=== PATIENT | male | born 1975 | race Caucasian/White ===

== ENCOUNTER 2020-06-27 21:09 | Inpatient (IN) | payer OTHER ==
[~2020-06-27] VITALS: Ht 182.9 cm; Wt 120.2 kg
[~2020-06-27 21:09] MED LIST: ALDACTONE 25MG25 MG PO; FERRO-TIME325 MG PO; KLOR-CON 1010 MEQ PO; LACTULOSE10 GM/15 M PO; PROTONIX 40 MG40 M1 PO; PROZAC40 MG PO
[2020-06-27 22:10] LABS: HEMOGLOBIN 13.9 gm/dl (14.0-17.5); RED BLOOD COUNT 4.33 M/UL (4.20-5.50)
[2020-06-27 22:34] LABS: BUN/CREATININE RATIO 11 (0-10)
[2020-06-28] MEDS ORDERED: SUBOXONE 8 MG-1 EACH SL (12:49)
[2020-06-29 03:34] LABS: BUN/CREATININE RATIO 15 (0-10)
[2020-06-29 06:19] LABS: HEMOGLOBIN 12.7 gm/dl (14.0-17.5); RED BLOOD COUNT 3.91 M/UL (4.20-5.50)
[2020-06-29 06:37] LABS: WHITE BLOOD COUNT 3.8 K/UL (4.5-11.0)
[2020-06-30 05:01] LABS: HEMOGLOBIN 12.8 gm/dl (14.0-17.5); RED BLOOD COUNT 3.9 M/UL (4.20-5.50); WHITE BLOOD COUNT 3.4 K/UL (4.5-11.0)
--- NOTE | 2020-06-30 05:09 | NUR ---
0510- PLT COUNT OF 38 RECIEVED FROM LAB, NO CHANGE FROM PREVIOUS DAY.
[2020-06-30 05:37] LABS: BUN/CREATININE RATIO 17 (0-10)
[2020-07-01] MEDS ORDERED: PROZAC40 MG PO (13:14)
[2020-07-01] MEDS ORDERED: ALDACTONE 25MG25 MG PO (13:14)
[2020-07-01] MEDS ORDERED: PROTONIX 40 MG40 M1 PO (13:14)
[2020-07-01] MEDS ORDERED: LACTULOSE10 GM/15 M PO (13:14)
[2020-07-01] MEDS ORDERED: XIFAXAN 550 MG550 MG GT (13:19)
[2020-07-01] MEDS ORDERED: XIFAXAN 550 MG550 MG PO (13:21)
[2020-08-04] MEDS ORDERED: LACTULOSE10 GM/15 M PO (13:39)
== END 2020-07-01 14:52 | DRG 391 ==
LOC: ER1 21:09 → CDU 06-28 01:18 → M/S 06-28 16:50
PROVIDERS: Internal Medicine; Physician Assistant; ADMIT Internal Medicine
DX: K59.00 Constipation, unspecified (principal); K72.00 Acute and subacute hepatic failure without coma; E87.2 Acidosis; Z20.822 Contact with and (suspected) exposure to COVID-19; K75.81 Nonalcoholic steatohepatitis (NASH); D72.829 Elevated white blood cell count, unspecified; F17.200 Nicotine dependence, unspecified, uncomplicated; D69.59 Other secondary thrombocytopenia; B18.2 Chronic viral hepatitis C; Z79.899 Other long term (current) drug therapy
CPT/HCPCS: 36415; 71045; 80053; 82140; 83605; 85025; 85027; 85610; 87040; 87086; 99285; Q9967; U0002

== ENCOUNTER 2020-08-02 13:46 | Inpatient (IN) | payer OTHER ==
[~2020-08-02] VITALS: Ht 182.9 cm; Wt 117.9 kg
[~2020-08-02 13:46] MED LIST changes: +SUBOXONE 8 MG-1 EACH SL; +XIFAXAN 550 MG550 MG GT; +XIFAXAN 550 MG550 MG PO
[2020-08-02 15:34] LABS: HEMOGLOBIN 13.1 gm/dl (14.0-17.5); RED BLOOD COUNT 3.93 M/UL (4.20-5.50)
[2020-08-02 15:44] LABS: WHITE BLOOD COUNT 3.5 K/UL (4.5-11.0)
[2020-08-02 15:54] LABS: BUN/CREATININE RATIO 11 (0-10)
--- NOTE | 2020-08-02 18:15 | NUR ---
PT RECEIVED FROM ER, PT NONVERBAL AT PRESENT, DOESNT RESPOND TO QUESTIONS, GAURDS UNAWARE OF PTS MEDICAL HISTORY OR MEDICINE.,
[2020-08-03 07:13] LABS: HEMOGLOBIN 13.8 gm/dl (14.0-17.5); RED BLOOD COUNT 4.31 M/UL (4.20-5.50)
[2020-08-03 07:16] LABS: WHITE BLOOD COUNT 5.7 K/UL (4.5-11.0)
[2020-08-03 07:36] LABS: BUN/CREATININE RATIO 12 (0-10)
[2020-08-04 03:38] LABS: HEMOGLOBIN 11.7 gm/dl (14.0-17.5); RED BLOOD COUNT 3.48 M/UL (4.20-5.50); WHITE BLOOD COUNT 3.1 K/UL (4.5-11.0)
[2020-08-04 04:10] LABS: BUN/CREATININE RATIO 16 (0-10)
[2020-08-04] MEDS ORDERED: LACTULOSE10 GM/15 M PO (13:39)
== END 2020-08-04 15:26 | DRG 442 ==
LOC: ER1 13:46 → MED SURG 4 16:35 → CDU 16:35 → MED SURG 4 17:44
PROVIDERS: Family Medicine; ADMIT Internal Medicine
DX: K72.00 Acute and subacute hepatic failure without coma (principal); E87.0 Hyperosmolality and hypernatremia; F11.20 Opioid dependence, uncomplicated; D61.818 Other pancytopenia; K75.81 Nonalcoholic steatohepatitis (NASH); D69.6 Thrombocytopenia, unspecified; F17.210 Nicotine dependence, cigarettes, uncomplicated; B19.20 Unspecified viral hepatitis C without hepatic coma; E86.0 Dehydration; Z20.822 Contact with and (suspected) exposure to COVID-19
CPT/HCPCS: 36415; 71045; 80053; 82140; 83605; 83690; 83735; 84439; 84443; 85025; 85610; 86140; 99284; J0696; J2405; U0002

== ENCOUNTER 2020-08-15 15:17 | Inpatient (IN) | payer OTHER ==
[~2020-08-15] VITALS: Ht 182.9 cm; Wt 117.9 kg
[2020-08-15 17:54] LABS: HEMOGLOBIN 12.7 gm/dl (14.0-17.5); RED BLOOD COUNT 3.83 M/UL (4.20-5.50); WHITE BLOOD COUNT 4.2 K/UL (4.5-11.0)
[2020-08-15 18:14] LABS: BUN/CREATININE RATIO 10 (0-10)
[2020-08-16 04:17] LABS: HEMOGLOBIN 11.8 gm/dl (14.0-17.5); RED BLOOD COUNT 3.53 M/UL (4.20-5.50); WHITE BLOOD COUNT 3.6 K/UL (4.5-11.0)
[2020-08-16 04:46] LABS: BUN/CREATININE RATIO 11 (0-10)
[2020-08-17 03:42] LABS: HEMOGLOBIN 12.2 gm/dl (14.0-17.5); RED BLOOD COUNT 3.66 M/UL (4.20-5.50)
[2020-08-17 04:06] LABS: BUN/CREATININE RATIO 11 (0-10)
[2020-08-19 03:28] LABS: BUN/CREATININE RATIO 17 (0-10)
[2020-08-21 07:00] LABS: HEMOGLOBIN 11.4 gm/dl (14.0-17.5)
[2020-08-21 07:05] LABS: RED BLOOD COUNT 3.39 M/UL (4.20-5.50); WHITE BLOOD COUNT 2.3 K/UL (4.5-11.0)
[2020-08-21 07:28] LABS: BUN/CREATININE RATIO 15 (0-10)
[2020-08-22 04:53] LABS: HEMOGLOBIN 11.9 gm/dl (14.0-17.5); RED BLOOD COUNT 3.59 M/UL (4.20-5.50); WHITE BLOOD COUNT 2.2 K/UL (4.5-11.0)
[2020-08-22 05:21] LABS: BUN/CREATININE RATIO 15 (0-10)
--- NOTE | 2020-08-22 15:03 | NUR ---
CONTACTED AT THIS TIME ABOUT PATIENT CRITICAL PLATELET COUNT. NO NEW ORDERS GIVEN.
[2020-08-23 06:09] LABS: HEMOGLOBIN 11.8 gm/dl (14.0-17.5); RED BLOOD COUNT 3.5 M/UL (4.20-5.50)
[2020-08-23 06:11] LABS: WHITE BLOOD COUNT 2.8 K/UL (4.5-11.0)
[2020-08-23 06:27] LABS: BUN/CREATININE RATIO 15 (0-10)
[2020-08-23] MEDS ORDERED: CHRONULAC20 GM/30 M PO (09:25)
[2020-08-23] MEDS ORDERED: METHOCARBAMOL500 MG PO (09:25)
[2020-08-23] MEDS ORDERED: FLORANEX GRANU1 EACH PO (09:25)
[2020-08-23] MEDS ORDERED: XIFAXAN 550 MG550 MG PO (09:25)
[2020-08-23] MEDS ORDERED: ALDACTONE 25MG25 MG PO (09:46)
[2020-08-23] MEDS ORDERED: PHOS-NAK PACKET1 EA PO (10:38)
== END 2020-08-23 13:03 | DRG 442 ==
LOC: ER1 15:17 → MED SURG 4 18:40 → CDU 18:40 → MED SURG 4 08-16 14:35
PROVIDERS: Emergency Medicine; Internal Medicine; Physician Assistant; ADMIT Internal Medicine
DX: K72.00 Acute and subacute hepatic failure without coma (principal); K76.6 Portal hypertension; I85.10 Secondary esophageal varices without bleeding; D61.818 Other pancytopenia; E87.0 Hyperosmolality and hypernatremia; Z20.822 Contact with and (suspected) exposure to COVID-19; K74.60 Unspecified cirrhosis of liver; D69.6 Thrombocytopenia, unspecified; F41.9 Anxiety disorder, unspecified; F32.9 Major depressive disorder, single episode, unspecified; J01.90 Acute sinusitis, unspecified; E66.9 Obesity, unspecified; I95.9 Hypotension, unspecified; E87.6 Hypokalemia; R19.7 Diarrhea, unspecified; E86.0 Dehydration; K75.81 Nonalcoholic steatohepatitis (NASH); Z86.19 Personal history of other infectious and parasitic diseases; Z79.899 Other long term (current) drug therapy; Z68.35 Body mass index [BMI] 35.0-35.9, adult
CPT/HCPCS: 36415; 70450; 71045; 71046; 76705; 80048; 80053; 80307; 81001; 82140; 82550; 82553; 83690; 83735; 83874; 84100; 84484; 85025; 85027; 85049; 85610; 85730; 87040; 87086; 93005; 96374; 99285; G0378; G0480; J2270; J7030; Q9967; U0002

== ENCOUNTER 2020-08-24 21:20 | Emergency (ER) | payer OTHER ==
[~2020-08-24 21:20] MED LIST changes: +CHRONULAC20 GM/30 M PO; +FLORANEX GRANU1 EACH PO; +METHOCARBAMOL500 MG PO; +PHOS-NAK PACKET1 EA PO
[2020-08-24 22:41] LABS: HEMOGLOBIN 13.9 gm/dl (14.0-17.5); RED BLOOD COUNT 4.12 M/UL (4.20-5.50); WHITE BLOOD COUNT 5.2 K/UL (4.5-11.0)
[2020-08-24 23:02] LABS: BUN/CREATININE RATIO 10 (0-10)
== END 2020-08-25 02:27 | disposition home or self-care (01) ==
LOC: ER1 21:20
PROVIDERS: Physician Assistant
DX: R25.1 Tremor, unspecified (principal); D61.818 Other pancytopenia; K74.60 Unspecified cirrhosis of liver; D69.6 Thrombocytopenia, unspecified; R51.9 Headache, unspecified; Z86.19 Personal history of other infectious and parasitic diseases; Z79.899 Other long term (current) drug therapy
CPT/HCPCS: 70450; 71045; 80053; 81001; 82140; 82550; 82553; 83874; 84484; 85025; 87086; 93005; 99284

== ENCOUNTER → 2020-09-10 | Outpatient (CLI) | payer OTHER | LOC: LAB 01:11 | DX: I85.00 Esophageal varices without bleeding (principal); K74.60 Unspecified cirrhosis of liver; F33.0 Major depressive disorder, recurrent, mild | CPT/HCPCS: 82140 ==